=== PATIENT | female | born 1950 | race African-American/Black ===

== ENCOUNTER 2024-01-30 20:20 | Inpatient (IN) | payer OTHER ==
[2024-01-30 20:46] LABS: VENOUS O2 SATURATION 95.5 % (70-80); VENOUS PCO2 98.4 mmHg (38-52)
[2024-01-30 20:47] LABS: VENOUS BASE EXCESS -6.7 mmol/L (-2-2); VENOUS O2 SATURATION 83.4 % (70-80); VENOUS PCO2 76.5 mmHg (38-52)
[2024-01-30 20:49] LABS: HEMATOCRIT 44.9 % (32.4-45.2); MCHC 31.2 g/dl (32.0-36.0); MEAN CELL VOLUME 86.3 fl (80-96); MEAN PLT VOLUME 7.9 fl (7.5-11.1); PLATELET COUNT 325 10^3/uL (134-434); RDW 14.8 % (11.6-15.6); WHITE BLOOD COUNT 10.1 K/mm3 (4.0-10.0)
[2024-01-30 20:52] LABS: VENOUS PH 7.016 (7.310-7.410)
[2024-01-30 20:54] LABS: VENOUS PH 7.122 (7.310-7.410)
[2024-01-30 20:56] LABS: INR 1.01 (0.83-1.09); PROTHROMBIN TIME (PATIENT) 11.6 SEC (9.7-13.0)
[2024-01-30] MEDS: EPINEPHrine 1:1,000 0.3 MG/0.3 ML SYR IM ONE (20:56)
[2024-01-30] MEDS: ALBUTEROL SO4 2.5/IPRATROPIUM 0.5 INH SOL 3 ML VIAL.NEB. NEB SCH (20:57)
[2024-01-30] MEDS: DEXAMETHASONE SOD PHOSPHATE 10 MG/1 ML VIAL IVPUSH ONE (20:57)
[2024-01-30] MEDS: MAGNESIUM SULFATE IN WATER 2 GM/50 ML IVPB IVPB ONE (20:57)
[2024-01-30 20:59] LABS: ACTIVATED PTT 33.1 SECONDS (25.2-36.5)
[2024-01-30 21:03] LABS: CHLORIDE 105 mmol/L (98-107); POTASSIUM 4.1 mmol/L (3.5-5.1); SODIUM 141 mmol/L (136-145)
[2024-01-30 21:06] LABS: ALBUMIN 3.5 g/dl (3.4-5.0); ANION GAP 9 mmol/L (4-13); BLOOD UREA NITROGEN 20.3 mg/dL (7-18); CO2 27 mmol/L (21-32); GLUCOSE,RANDOM 282 mg/dL (74-106)
[2024-01-30 21:09] LABS: CHOLESTEROL 158 mg/dL (50-200); CREATININE 1.4 mg/dL (0.55-1.3); SGOT/AST 22 U/L (15-37); SGPT/ALT 20 U/L (13-61)
[2024-01-30 21:10] LABS: BILIRUBIN,TOTAL 0.7 mg/dL (0.2-1); LDL CHOLESTEROL (ONLY SJRH) 84 mg/dL (5-100)
[2024-01-30 21:11] LABS: HDL CHOLESTEROL 60 mg/dL (40-60)
[2024-01-30 21:12] LABS: ALK PHOS 122 U/L (45-117); TOT PROT 8.1 g/dl (6.4-8.2)
[2024-01-30] MEDS: methylPREDNISolone NA SUCC 125 MG/2 ML VIAL IVPUSH ONE (21:14)
[2024-01-30] MEDS ORDERED: ALBUTEROL SO4 0.083% IH SOL 2.5 MG/3 ML VIAL.NEB. NEB ONE (21:37)
[2024-01-30 21:43] LABS: ANISOCYTOSIS 0; MACROCYTOSIS 0; ROULEAU 2+
[2024-01-30] MEDS: ALBUTEROL SO4 0.083% IH SOL 2.5 MG/3 ML VIAL.NEB. NEB SCH (21:46)
[2024-01-30] MEDS ORDERED: CEFTRIAXONE 1 GM/50 ML BAG ONE (21:49)
[2024-01-30] MEDS ORDERED: AZITHROMYCIN IVPB 500 MG/250 ML BAG IVPB ONE (21:50)
[2024-01-30] MEDS: SODIUM CHLORIDE 0.9% 500 ML INFUS.BAG IV ONE (22:03)
[2024-01-30] MEDS: CEFTRIAXONE 1 GM in DEXTROSE 5%-WATER - 100 ML IVPB ONE (22:03)
[2024-01-30] MEDS: AZITHROMYCIN IVPB 500 MG in DEXTROSE 5%-WATER - 250 ML IVPB ONE (22:36)
[2024-01-30 23:33] LABS: VENOUS BASE EXCESS -4.1 mmol/L (-2-2); VENOUS O2 SATURATION 69.3 % (70-80); VENOUS PCO2 58.4 mmHg (38-52); VENOUS PH 7.235 (7.310-7.410)
[2024-01-31 02:02] LABS: EPI CELLS 30 /uL (0-25.1); HYALINE CASTS 2 /uL (0-3.1); PH,URINE 5.5 (5.0-8.0); URINE APPEARANCE CLEAR; URINE BILIRUBIN NEGATIVE (NEGATIVE); URINE COLOR YELLOW; URINE GLUCOSE (UA) 3+ (NEGATIVE); URINE KETONE NEGATIVE (NEGATIVE); URINE LEUK ESTERASE TRACE (NEGATIVE); URINE NITRITE POSITIVE (NEGATIVE); URINE PROTEIN 1+ (NEGATIVE); URINE RBC 42 /uL (0-23.9); URINE WBC 82 /uL (0-25.8)
[2024-01-31 02:17] LABS: URINE BACTERIA 1130.1 /uL (0-1359)
[2024-01-31] MEDS ORDERED: ALBUTEROL SO4 2.5/IPRATROPIUM 0.5 INH SOL 3 ML VIAL.NEB. NEB SCH (02:33)
[2024-01-31] MEDS ORDERED: ALBUTEROL SO4 HFA INHALER IH SCH (02:45)
[2024-01-31] MEDS ORDERED: PATIENT'S OWN MEDICATION (NON-FORMULARY) (Fluticasone/Vilanterol 1 PUFF Inhaler) IH SCH (03:30)
[2024-01-31 07:31] LABS: POTASSIUM 4.3 mmol/L (3.5-5.1)
[2024-01-31 07:36] LABS: CALCIUM 9.4 mg/dL (8.5-10.1)
[2024-01-31 07:37] LABS: ALBUMIN 3.3 g/dl (3.4-5.0); BLOOD UREA NITROGEN 20.5 mg/dL (7-18); MAGNESIUM 2.3 mg/dL (1.8-2.4)
[2024-01-31 07:40] LABS: CREATININE 1.2 mg/dL (0.55-1.3); PHOSPHOROUS 4.1 mg/dL (2.5-4.9)
[2024-01-31 07:41] LABS: BILIRUBIN,TOTAL 0.5 mg/dL (0.2-1); TOT PROT 7.8 g/dl (6.4-8.2)
[2024-01-31 07:44] LABS: HEMOGLOBIN 12.5 GM/dL (10.7-15.3); MCH 26.5 pg (25.7-33.7); MCHC 30.5 g/dl (32.0-36.0); MEAN CELL VOLUME 86.8 fl (80-96); MEAN PLT VOLUME 8.2 fl (7.5-11.1); PLATELET COUNT 296 10^3/uL (134-434); RBC 4.73 M/mm3 (3.60-5.2); RDW 14.3 % (11.6-15.6); WHITE BLOOD COUNT 14.7 K/mm3 (4.0-10.0)
[2024-01-31] MEDS: ALBUTEROL SO4 2.5/IPRATROPIUM 0.5 INH SOL 3 ML VIAL.NEB. NEB SCH (08:15)
[2024-01-31 09:10] LABS: ANISOCYTOSIS 0; HELMET CELLS 0; HOWELL-JOLLY BODIES 0; MACROCYTOSIS 0; OVALOCYTE 0; ROULEAU 0; SICKELED CELLS 0; TARGET CELLS 0; TEAR DROP CELLS 0; TOXIC GRANULATION 0
[2024-01-31 12:05] LABS: ARTERIAL BLD GAS O2 SATURATION 97.7 % (95-98); ARTERIAL BLOOD GAS BASE EXCESS 2.2 mmol/L (-2-2); ARTERIAL BLOOD GAS pH 7.463 (7.350-7.450)
[2024-01-31 12:10] LABS: ALLENS TEST POSITIVE
[2024-01-31] MEDS: ENOXAPARIN NA (PORCINE) 40 MG/0.4 ML DISP.SYRIN SQ SCH (12:13)
[2024-01-31] MEDS: methylPREDNISolone NA SUCC 40 MG/1 ML VIAL IVPUSH SCH (21:46)
[2024-01-31] MEDS: AZITHROMYCIN IVPB 250 MG in DEXTROSE 5%-WATER - 250 ML IVPB SCH (21:46)
[2024-01-31] MEDS: ATORVASTATIN CA 20 MG TABLET (FP) PO SCH (21:46)
[2024-01-31] MEDS: ACETAMINOPHEN 1000 MG/100 ML BAG IVPB ONE (21:46)
[2024-01-31] MEDS: CEFTRIAXONE 1 G/50 ML PREMIX 50 ML IVPB SCH (23:13)
[2024-02-01 07:35] LABS: BASO % 0.2 % (0-2.0); HEMATOCRIT 37.7 % (32.4-45.2); HEMOGLOBIN 11.9 GM/dL (10.7-15.3); LYMPH % 7.7 % (8-40); MCH 26.8 pg (25.7-33.7); MCHC 31.5 g/dl (32.0-36.0); MEAN PLT VOLUME 7.9 fl (7.5-11.1); MONO % 2.1 % (3.8-10.2); PLATELET COUNT 275 10^3/uL (134-434); RBC 4.43 M/mm3 (3.60-5.2); RDW 14.4 % (11.6-15.6); WHITE BLOOD COUNT 8.9 K/mm3 (4.0-10.0)
[2024-02-01 07:46] LABS: POTASSIUM 4.4 mmol/L (3.5-5.1)
[2024-02-01 07:48] LABS: ALBUMIN 3.2 g/dl (3.4-5.0); BLOOD UREA NITROGEN 20.4 mg/dL (7-18); CALCIUM 8.9 mg/dL (8.5-10.1)
[2024-02-01 07:51] LABS: CREATININE 1.1 mg/dL (0.55-1.3)
[2024-02-01 07:53] LABS: BILIRUBIN,TOTAL 0.6 mg/dL (0.2-1); TOT PROT 7.2 g/dl (6.4-8.2)
[2024-02-02 08:55] LABS: MAGNESIUM 2.4 mg/dL (1.8-2.4)
[2024-02-02 09:11] LABS: N-TERMINAL BNP 1169.2 pg/ml (5-125)
[2024-02-02] MEDS: amLODIPine BESYLATE 5 MG TABLET (FP) PO SCH (10:03)
[2024-02-02] MEDS: methylPREDNISolone NA SUCC 40 MG/1 ML VIAL IVPUSH SCH (21:00)
[2024-02-02] MEDS: AZITHROMYCIN IVPB 250 MG in DEXTROSE 5%-WATER - 250 ML IVPB SCH (21:36)
[2024-02-02 22:58] VITALS: BMI 27.0
[2024-02-03 08:30] LABS: POTASSIUM 4.7 mmol/L (3.5-5.1)
[2024-02-03 08:32] LABS: HEMATOCRIT 38.4 % (32.4-45.2); HEMOGLOBIN 12.4 GM/dL (10.7-15.3); MCH 27.3 pg (25.7-33.7); MCHC 32.4 g/dl (32.0-36.0); MEAN CELL VOLUME 84.4 fl (80-96); MEAN PLT VOLUME 8.3 fl (7.5-11.1); PLATELET COUNT 275 10^3/uL (134-434); RBC 4.55 M/mm3 (3.60-5.2); RDW 14.3 % (11.6-15.6)
[2024-02-03 08:35] LABS: ALBUMIN 3.3 g/dl (3.4-5.0); BLOOD UREA NITROGEN 23.7 mg/dL (7-18)
[2024-02-03 08:37] LABS: CALCIUM 9.1 mg/dL (8.5-10.1)
[2024-02-03 08:38] LABS: BILIRUBIN,TOTAL 0.7 mg/dL (0.2-1); TOT PROT 7.4 g/dl (6.4-8.2)
[2024-02-03] MEDS: ASCORBIC ACID 500 MG TABLET (FP) PO SCH (09:28)
[2024-02-03] MEDS: amLODIPine BESYLATE 10 MG TABLET (FP) PO SCH (09:28)
[2024-02-03] MEDS: MULTIVITAMINS (DAILY MVI) TABLET (FP) PO SCH (09:28)
[2024-02-03] MEDS: ZINC SULFATE 220 MG CAPSULE (FP) PO SCH (09:29)
[2024-02-03 10:09] LABS: ANISOCYTOSIS 1+; MACROCYTOSIS 1+
[2024-02-03] MEDS: predniSONE 20 MG TABLET (UD) PO ONE (12:23)
[2024-02-03] MEDS: ACETAMINOPHEN 500 MG TABLET (FP) PO PRN (12:24)
[2024-02-03] MEDS: predniSONE 20 MG TABLET (UD) PO SCH (12:29)
[2024-02-03] MEDS ORDERED: methylPREDNISolone NA SUCC 40 MG/1 ML VIAL IVPUSH SCH (15:00)
[2024-02-04] MEDS: TRIAMTERENE AND HCTZ - 37.5 MG/25 MG CAPSULE PO SCH (10:41)
[2024-02-04] MEDS: predniSONE 10 MG TABLET (UD) PO ONE (12:05)
[2024-02-04 15:37] VITALS: BP 134/87; PULSE 91; RESP 19; TEMP 99
[2024-02-05] MEDS ORDERED: predniSONE 20 MG TABLET (UD) PO ONE (12:00)
[2024-02-06] MEDS ORDERED: predniSONE 10 MG TABLET (UD) PO ONE (12:00)
== END 2024-02-04 16:40 | DRG 191 ==
LOC: EDBD 20:20 → JER 20:20 → JERBED 23:16 → J4W 01-31 02:00 → OBSVTOIN 01-31 02:47
PROVIDERS: ADMIT Internal Medicine; ATTEND Internal Medicine
DX: J44.1 Chronic obstructive pulmonary disease with (acute) exacerbation (principal); E87.29 Other acidosis; I24.89 Other forms of acute ischemic heart disease; I10 Essential (primary) hypertension; E78.5 Hyperlipidemia, unspecified; I73.9 Peripheral vascular disease, unspecified; I87.2 Venous insufficiency (chronic) (peripheral); R94.31 Abnormal electrocardiogram [ECG] [EKG]
CPT/HCPCS: 0241U-QW; 36415; 36600; 71045-TC-FY; 71275-TC; 80053; 80061; 81003; 82803; 82962; 83036; 83735; 83880; 84100; 84439; 84443; 84484; 85025; 85610; 85730; 86850; 86900; 86901; 87086; 87635; 93005; 93010; 93306-TC; 93922; 93926-TC; 93970-TC; 94640; 94660; 97116-GP; 97162-GP; 99291; G0378; J0171; J1100; Q9967

== ENCOUNTER 2024-10-21 14:54 | Inpatient (IN) | payer OTHER ==
[2024-10-21 15:06] VITALS: BMI 22.1
[2024-10-21 18:24] LABS: ABSOLUTE IMMATURE GRANULOCYTES 0.31 x10^3/uL (0.0-0.031); BASOPHILS # 0.08 x10^3/uL (0.01-0.08); EOSINOPHIL % 0.9 % (0.7-5.8); EOSINOPHILS # 0.06 x10^3/uL (0.04-0.36); MCHC 33.5 g/dl (32.2-35.5); MEAN CELL VOLUME 79.1 fl (79.4-94.8); MEAN PLT VOLUME 9.5 fl (9.4-12.3); MONOCYTE # 0.61 x10^3/uL (0.24-0.86); MONOCYTE % 8.9 % (4.7-12.5); RDW 20.7 % (12.4-16.6)
[2024-10-21 18:33] LABS: INR 1.71 (0.83-1.09); PROTHROMBIN TIME (PATIENT) 18.8 SEC (9.7-13.0)
[2024-10-21 18:35] LABS: ACTIVATED PTT 36.9 SECONDS (25.2-36.5)
[2024-10-21 19:04] LABS: CO2 30 mmol/L (21-32); GLUCOSE,RANDOM 128 mg/dL (74-106)
[2024-10-21 19:06] LABS: CREATININE 1.0 mg/dL (0.55-1.3); SGOT/AST 133 U/L (15-37); SGPT/ALT 82 U/L (13-61)
[2024-10-21 19:10] LABS: ALK PHOS 932 U/L (45-117)
[2024-10-21 19:16] LABS: TOT PROT 7.3 g/dl (6.4-8.2)
[2024-10-21 22:22] LABS: HIV INTERPRETATION NEGATIVE (NEGATIVE)
[2024-10-21 22:26] LABS: HCV DIAGNOSTIC IN-HOUSE W/RFLX NON-REACTIVE (NONREACTIVE)
[2024-10-21] MEDS: LACTATED RINGERS SOLUTION 1000 ML INFUS.BAG IV ONE (22:49)
[2024-10-22 01:27] VITALS: TEMP 98.1
[2024-10-22] MEDS ORDERED: PIPERACILLIN/TAZOB 3.375 GM 3.375 GM in DEXTROSE 5%-WATER - 50 ML IVPB SCH (03:15)
[2024-10-22] MEDS: LACTATED RINGERS SOLUTION 1,000 ML/1,000 ML INFUS.BAG IV SCH (04:01)
[2024-10-22] MEDS: PIPERACILLIN/TAZOB 3.375 GM 3.375 GM in DEXTROSE 5%-WATER - 50 ML IVPB SCH (04:01)
[2024-10-22] MEDS ORDERED: AMMONIUM LACTATE 12% LOTION 225 GM BOTTLE TP PRN (08:40)
[2024-10-22 08:47] LABS: MCHC 34.1 g/dl (32.2-35.5); MEAN CELL VOLUME 77.9 fl (79.4-94.8); MEAN PLT VOLUME 9.4 fl (9.4-12.3); RDW 20.8 % (12.4-16.6)
[2024-10-22 08:55] LABS: INR 1.71 (0.83-1.09); PROTHROMBIN TIME (PATIENT) 18.6 SEC (9.7-13.0)
[2024-10-22 08:58] LABS: ACTIVATED PTT 35.7 SECONDS (25.2-36.5)
[2024-10-22 09:17] LABS: CO2 31 mmol/L (21-32); GLUCOSE,RANDOM 98 mg/dL (74-106)
[2024-10-22 09:20] LABS: CREATININE 1.1 mg/dL (0.55-1.3); SGOT/AST 117 U/L (15-37); SGPT/ALT 73 U/L (13-61)
[2024-10-22 09:24] LABS: ALK PHOS 847 U/L (45-117); TOT PROT 6.6 g/dl (6.4-8.2)
[2024-10-22] MEDS ORDERED: PHYTONADIONE 10 MG/1 ML AMP IM ONE (10:00)
[2024-10-22] MEDS: MINERAL OIL/PET HY-PHL TOPICAL OINTMENT 454 GM JAR TP SCH (10:26)
[2024-10-22] MEDS: PHYTONADIONE 10 MG/1 ML AMP IVPB ONE (10:41)
[2024-10-22 11:36] LABS: INR 1.78 (0.83-1.09); PROTHROMBIN TIME (PATIENT) 19.4 SEC (9.7-13.0)
[2024-10-22] MEDS ORDERED: PHYTONADIONE 10 MG/1 ML AMP IVPB ONE (12:15)
[2024-10-22] MEDS: PHYTONADIONE 10 MG/1 ML AMP IM ONE (12:21)
[2024-10-22 12:24] LABS: CO2 27 mmol/L (21-32); GLUCOSE,RANDOM 87 mg/dL (74-106)
[2024-10-22 12:26] LABS: SGOT/AST 111 U/L (15-37); SGPT/ALT 67 U/L (13-61)
[2024-10-22 12:28] LABS: CREATININE 1.0 mg/dL (0.55-1.3)
[2024-10-22 12:29] LABS: TOT PROT 6.2 g/dl (6.4-8.2)
[2024-10-22 12:32] LABS: ALK PHOS 791 U/L (45-117)
[2024-10-22 13:38] VITALS: BP 91/66; PULSE 81; RESP 18
== END 2024-10-22 14:12 | disposition short-term general hospital (02) | DRG 445 ==
LOC: JER 14:54 → JERBED 21:25 → J8W 10-22 05:32
PROVIDERS: ADMIT Internal Medicine; ATTEND Internal Medicine
DX: K83.1 Obstruction of bile duct (principal); R17 Unspecified jaundice; I10 Essential (primary) hypertension; J44.9 Chronic obstructive pulmonary disease, unspecified; E80.6 Other disorders of bilirubin metabolism
CPT/HCPCS: 36415; 76705-TC; 80053; 82140; 82150; 82248; 82550; 82977; 83690; 83735; 84100; 85025; 85027; 85610; 85730; 86803; 86850; 86900; 86901; 87040; 87389; 93005; 93010; 93971-TC; 99285-25